=== PATIENT | female | born 1990 | race Caucasian/White ===

== ENCOUNTER 2017-05-09 01:53 | Emergency (ER) | payer OTHER ==
[~2017-05-09] VITALS: Ht 160 cm; Wt 59.8 kg
[~2017-05-09 01:53] MED LIST: BACTRIM,SEPT1 TABLET PO; CIPRO500 MG PO; DULCOLAX5 MG PO; FETZIMA40 MG PO; FLEXERIL10 MG PO; FLONASE16 G1 BOTH NARES; LEXAPRO10 MG PO; MACROBID100 MG PO; METAMUCIL PACKE1 PKT PO; MIRENA52 MG IY; MOTRIN800 MG PO; Motrin PO; NAPROSYN500 MG PO; PERCOCET 5/31 TABLET PO; Percocet 5/325,Endoc PO; ULTRAM50 MG PO; VICODIN 5-3001 EACH PO; ZOFRAN ODT8 MG PO; ZOFRAN4 MG PO
[2017-05-09 02:20] LABS: COLOR ORANGE ((YELLOW)); SPECIFIC GRAVITY 1.015 (1.000-1.030)
[2017-05-09 02:21] LABS: BLOOD LARGE; GLUCOSE (STRIP) NEGATIVE; PH, URINE 6.5 (5-8)
[2017-05-09 02:22] LABS: ADD MIUA? YES; LEUKOCYTES SMALL
[2017-05-09] MEDS ORDERED: MACROBID100 MG PO (02:48)
[2017-05-09 02:54] LABS: BACTERIA 1+ /HPF; EPITHELIAL CELLS RARE /HPF; MUCUS NONE SEEN /LPF; RED BLOOD CELLS TNTC /HPF (0-5); UCUL ADDED? YES; WHITE BLOOD CELLS TNTC /HPF (0-5); WHITE BLOOD CELLS CLUMP MOD /HPF (0-5)
[2017-05-09] MEDS ORDERED: PYRIDIUM200 MG PO (02:59)
[2017-05-09 03:02] VITALS: BP 120/70
== END 2017-05-09 03:02 | disposition home or self-care (01) ==
LOC: EXP 01:53 → EME 01:53 → EXP 03:02
DX: O23.42 Unspecified infection of urinary tract in pregnancy, second trimester (principal); Z3A.22 22 weeks gestation of pregnancy
CPT/HCPCS: 81003; 87077; 87086; 87186; 99281; 99283

== ENCOUNTER 2017-06-02 15:19 | Outpatient (CLI) | payer OTHER ==
[~2017-06-02] VITALS: Ht 162.6 cm; Wt 63.5 kg
[~2017-06-02 15:19] MED LIST changes: +PYRIDIUM200 MG PO
[2017-06-02 15:45] VITALS: BP 113/66
[2017-06-02 16:16] LABS: EOSINOPHIL (%) 0.8 % (0-5); EOSINOPHIL COUNT 0.1 K/uL (0-0.3); HEMATOCRIT 30.4 % (36.0-46.0); IMMATURE GRANULOCYTE (%) 1.8 % (0.0-0.7); IMMATURE GRANULOCYTE COUNT 0.2 K/uL; INSTRUMENT ABS NEUTROPHIL CT 8.5 K/uL; LYMPHOCYTE COUNT 1.8 K/uL (1.0-2.8); MCH 31.1 PG (29.0-34.0); MCHC 34.2 G/DL (30.0-36.0); MEAN PLAT.VOLUME 8.7 uM^3 (9.5-12.4); MONOCYTE (%) 5.3 % (3-12); MONOCYTE COUNT 0.6 K/uL (0-0.8); NEUTROPHIL (%) 75.7 % (45-76); NEUTROPHIL COUNT 8.5 K/uL (1.8-6.4); PLATELET COUNT 259 K/uL (156-360); RBC DIS.WIDTH-CV 12.9 % (11.8-14.6); RBC DIS.WIDTH-SD 41.6 % (39-53); RED BLOOD COUNT 3.34 M/uL (3.80-5.20); WHITE BLOOD COUNT 11.3 K/uL (4.1-10.2)
[2017-06-02 16:27] LABS: ANION GAP 7 MEQ/L (2-14); CHLORIDE 104 MEQ/L (99-109); POTASSIUM 3.7 MEQ/L (3.7-5.4); SAMPLE HEMOLYSIS CHECK 0; SAMPLE ICTERIC CHECK 0; SAMPLE LIPEMIA CHECK 0; SODIUM 137 MEQ/L (136-147); TOTAL BILIRUBIN 0.3 MG/DL (0.0-1.0)
[2017-06-02 16:32] LABS: ALKALINE PHOSPHATASE 51 IU/L (3-129); GFR ESTIMATE (CALCULATED) > 59 mL/min/; GLUCOSE 91 mg/dL (70-99); UREA NITROGEN (BUN) 10 mg/dL (9-23); URIC ACID 3.7 mg/dL (3.1-9.2)
[2017-06-02 17:00] LABS: ADD MIUA? YES; BILIRUBIN NEGATIVE; BLOOD MODERATE; COLOR YELLOW ((YELLOW)); GLUCOSE (STRIP) NEGATIVE; KETONES NEGATIVE; LEUKOCYTES LARGE; NITRITE NEGATIVE; PROTEIN (STRIP) NEGATIVE; SPECIFIC GRAVITY 1.012 (1.000-1.030); UROBILINOGEN 0.2 MG/DL (0.2-1.0)
[2017-06-02 17:18] VITALS: BP 115/65
[2017-06-02 17:39] LABS: BACTERIA 2+ /HPF; EPITHELIAL CELLS 4+ /HPF; MUCUS NONE SEEN /LPF; UCUL ADDED? YES; WHITE BLOOD CELLS TNTC /HPF (0-5)
[2017-06-02 19:14] VITALS: BP 105/61
[2017-06-02 22:41] VITALS: BP 109/57
[2017-06-03 03:10] VITALS: BP 113/54
[2017-06-03 08:12] VITALS: BP 110/58
[2017-06-03] MEDS ORDERED: PHENAZOPYRIDIN100 MG PO (09:13)
[2017-06-03] MEDS ORDERED: MACROBID100 MG PO (09:13)
[2017-06-03 11:09] LABS: ADD MIUA? YES; BILIRUBIN NEGATIVE; BLOOD MODERATE; COLOR AMBER ((YELLOW)); GLUCOSE (STRIP) NEGATIVE; KETONES NEGATIVE; LEUKOCYTES MODERATE; NITRITE POSITIVE; PROTEIN (STRIP) NEGATIVE; SPECIFIC GRAVITY 1.006 (1.000-1.030)
[2017-06-03 11:22] LABS: BACTERIA NONE SEEN /HPF; EPITHELIAL CELLS 1+ /HPF; MUCUS TRACE /LPF; RED BLOOD CELLS 0-5 /HPF (0-5); UCUL ADDED? YES; WHITE BLOOD CELLS 40-50 /HPF (0-5)
== END 2017-06-03 10:55 | disposition home or self-care (01) ==
LOC: LDRP-OP 15:19 → 2WEST 15:20
PROVIDERS: Obstetrics & Gynecology Gynecology
DX: O26.892 Other specified pregnancy related conditions, second trimester (principal); M54.5 Low back pain; O23.02 Infections of kidney in pregnancy, second trimester; Z87.440 Personal history of urinary (tract) infections; Z86.19 Personal history of other infectious and parasitic diseases; Z3A.25 25 weeks gestation of pregnancy
CPT/HCPCS: 59025; 80053; 81003; 84550; 85025; 87086; G0378

== ENCOUNTER 2017-06-08 11:53 | Outpatient (CLI) | payer OTHER ==
[~2017-06-08 11:53] MED LIST changes: +PHENAZOPYRIDIN100 MG PO
[2017-06-08 12:22] VITALS: BP 120/72
[2017-06-08 13:00] LABS: EOSINOPHIL (%) 0.5 % (0-5); EOSINOPHIL COUNT 0.1 K/uL (0-0.3); HEMATOCRIT 30.5 % (36.0-46.0); IMMATURE GRANULOCYTE (%) 1.6 % (0.0-0.7); IMMATURE GRANULOCYTE COUNT 0.2 K/uL; INSTRUMENT ABS NEUTROPHIL CT 9.1 K/uL; LYMPHOCYTE COUNT 1.7 K/uL (1.0-2.8); MCH 30.7 PG (29.0-34.0); MCHC 33.8 G/DL (30.0-36.0); MEAN PLAT.VOLUME 8.7 uM^3 (9.5-12.4); MONOCYTE COUNT 0.6 K/uL (0-0.8); NEUTROPHIL (%) 77.9 % (45-76); NEUTROPHIL COUNT 9.1 K/uL (1.8-6.4); PLATELET COUNT 247 K/uL (156-360); RBC DIS.WIDTH-CV 12.8 % (11.8-14.6); RBC DIS.WIDTH-SD 41.7 % (39-53); RED BLOOD COUNT 3.35 M/uL (3.80-5.20); WHITE BLOOD COUNT 11.7 K/uL (4.1-10.2)
[2017-06-08 15:08] VITALS: BP 113/62
[2017-06-08 18:57] VITALS: BP 114/68
[2017-06-08 22:52] VITALS: BP 107/65
[2017-06-09 03:29] VITALS: BP 107/56
[2017-06-09 06:52] VITALS: BP 109/65
[2017-06-09 10:57] VITALS: BP 117/63
== END 2017-06-09 15:40 | disposition home or self-care (01) ==
LOC: LDRP-OP 11:53 → 2WEST 11:54 → LDRP-OP 10-11 11:20
PROVIDERS: Nurse Practitioner
DX: O26.832 Pregnancy related renal disease, second trimester (principal); N26.1 Atrophy of kidney (terminal); Z86.19 Personal history of other infectious and parasitic diseases; Z87.440 Personal history of urinary (tract) infections; Z98.890 Other specified postprocedural states; Z88.2 Allergy status to sulfonamides; Z3A.22 22 weeks gestation of pregnancy; N32.89 Other specified disorders of bladder
CPT/HCPCS: 59025; 76770; 82731; 85025; G0378; J0696; J7050; J7120

== ENCOUNTER 2017-07-11 20:49 | Outpatient (CLI) | payer OTHER ==
[2017-07-11 21:14] VITALS: BP 120/71
[2017-07-11] MEDS ORDERED: PRENATAL TABLE1 EAC3 PO (21:21)
[2017-07-11 22:46] LABS: ADD MIUA? YES; BILIRUBIN NEGATIVE; BLOOD NEGATIVE; COLOR YELLOW ((YELLOW)); GLUCOSE (STRIP) NEGATIVE; KETONES NEGATIVE; LEUKOCYTES LARGE; NITRITE NEGATIVE; PROTEIN (STRIP) 100; UROBILINOGEN 0.2 MG/DL (0.2-1.0)
[2017-07-11 22:56] LABS: EOSINOPHIL (%) 0.8 % (0-5); EOSINOPHIL COUNT 0.1 K/uL (0-0.3); IMMATURE GRANULOCYTE (%) 3.2 % (0.0-0.7); IMMATURE GRANULOCYTE COUNT 0.4 K/uL; INSTRUMENT ABS NEUTROPHIL CT 8.5 K/uL; LYMPHOCYTE COUNT 2.3 K/uL (1.0-2.8); MCH 31.5 PG (29.0-34.0); MCHC 34.5 G/DL (30.0-36.0); MCV 91.2 FL (83-99); MEAN PLAT.VOLUME 8.6 uM^3 (9.5-12.4); MONOCYTE (%) 7.3 % (3-12); MONOCYTE COUNT 0.9 K/uL (0-0.8); NEUTROPHIL (%) 69.8 % (45-76); NEUTROPHIL COUNT 8.5 K/uL (1.8-6.4); PLATELET COUNT 264 K/uL (156-360); RBC DIS.WIDTH-CV 12.8 % (11.8-14.6); WHITE BLOOD COUNT 12.2 K/uL (4.1-10.2)
[2017-07-11 23:11] LABS: CHLORIDE 106 mEq/L (99-109); SODIUM 138 mEq/L (136-147)
[2017-07-11 23:13] LABS: GLUCOSE 85 mg/dL (70-99)
[2017-07-11 23:14] LABS: ANION GAP 12 MEQ/L (2-14)
[2017-07-11 23:15] LABS: TOTAL BILIRUBIN 0.2 mg/dL (0.0-1.0)
[2017-07-11 23:17] LABS: ALKALINE PHOSPHATASE 81 IU/L (3-129); GFR ESTIMATE (CALCULATED) > 59 mL/min/
[2017-07-11 23:18] LABS: UREA NITROGEN (BUN) 9 mg/dL (9-23)
[2017-07-11 23:45] LABS: AMPHETAMINE NEGATIVE (500 ng/mL); BARBITURATES NEGATIVE (200 ng/mL); BENZODIAZEPINES NEGATIVE (150 ng/mL); COCAINE NEGATIVE (150 ng/mL); INTERNAL CONTROLS VALID? YES; METHADONE NEGATIVE (200 ng/mL); METHAMPHETAMINE NEGATIVE (500 ng/mL); OPIATES (MORPHINE) NEGATIVE (100 ng/mL); OXYCODONE NEGATIVE (100 ng/mL); PHENCYCLIDINE NEGATIVE (25 ng/mL); PROPOXYPHENE NEGATIVE (300 ng/mL); THC CANNABINOIDS NEGATIVE (50 ng/mL); TRICYCLIC ANTIDEPRESSANTS NEGATIVE (300 ng/mL)
[2017-07-12 00:10] VITALS: BP 99/59
[2017-07-12 02:24] VITALS: BP 108/55
[2017-07-12 02:56] LABS: BACTERIA NONE SEEN /HPF; EPITHELIAL CELLS RARE /HPF; MUCUS NONE SEEN /LPF; RED BLOOD CELLS NONE SEEN /HPF (0-5); UCUL ADDED? YES; WHITE BLOOD CELLS 30-40 /HPF (0-5)
[2017-07-12 05:56] VITALS: BP 107/67
[2017-07-12 06:24] LABS: CANDIDA DNA PROBE NEGATIVE; GARDNERELLA DNA PROBE POSITIVE; INTERNAL CONTROL VALID? YES
[2017-07-12 07:18] VITALS: BP 96/52
[2017-07-12] MEDS ORDERED: NIFEDIPINE20 MG PO (08:58)
[2017-07-12 13:21] LABS: CHLAMYDIA TRACHOMATIS NEGATIVE; NEISSERIA GONORRHOEAE NEGATIVE
== END 2017-07-12 09:35 | disposition home or self-care (01) ==
LOC: LDRP-OP 20:49 → 2WEST 20:51 → LDRP-OP 10-11 21:03
PROVIDERS: Midwife; Obstetrics & Gynecology
DX: O60.03 Preterm labor without delivery, third trimester (principal); Z87.440 Personal history of urinary (tract) infections; Z3A.31 31 weeks gestation of pregnancy
CPT/HCPCS: 59025; 80053; 81003; 82731; 85025; 87077; 87086; 87186; 87480; 87491; 87510; 87591; 87660; G0378; J0702; J2405; J7120

== ENCOUNTER 2017-07-12 21:25 | Outpatient (CLI) | payer OTHER ==
[~2017-07-12 21:25] MED LIST changes: +NIFEDIPINE20 MG PO; +PRENATAL TABLE1 EAC3 PO
[2017-07-12 21:51] VITALS: BP 112/67
== END 2017-07-12 23:10 | disposition home or self-care (01) ==
LOC: LDRP-OP 21:25 → 2WEST 21:27 → LDRP-OP 10-09 11:19
DX: O60.03 Preterm labor without delivery, third trimester (principal); Z3A.31 31 weeks gestation of pregnancy
CPT/HCPCS: 59025; G0378

== ENCOUNTER 2017-08-13 06:06 | Inpatient (IN) | payer OTHER ==
[2017-08-13] VITALS (13 sets, daily range): BP systolic 106–133; BP diastolic 70–88
[2017-08-13 07:57] LABS: BASOPHIL COUNT 0.1 K/uL (0-0.1); EOSINOPHIL (%) 0.5 % (0-5); EOSINOPHIL COUNT 0.1 K/uL (0-0.3); HEMATOCRIT 30.4 % (36.0-46.0); IMMATURE GRANULOCYTE COUNT 0.4 K/uL; INSTRUMENT ABS NEUTROPHIL CT 11.3 K/uL; LYMPHOCYTE COUNT 1.7 K/uL (1.0-2.8); MCH 30.5 PG (29.0-34.0); MCHC 33.6 G/DL (30.0-36.0); MEAN PLAT.VOLUME 8.6 uM^3 (9.5-12.4); MONOCYTE (%) 6.9 % (3-12); NEUTROPHIL (%) 77.4 % (45-76); NEUTROPHIL COUNT 11.3 K/uL (1.8-6.4); PLATELET COUNT 216 K/uL (156-360); RBC DIS.WIDTH-CV 12.9 % (11.8-14.6); RBC DIS.WIDTH-SD 42.4 % (39-53); RED BLOOD COUNT 3.34 M/uL (3.80-5.20); WHITE BLOOD COUNT 14.6 K/uL (4.1-10.2)
[2017-08-13 08:30] LABS: ADD MIUA? YES; BILIRUBIN NEGATIVE; BLOOD SMALL; COLOR YELLOW ((YELLOW)); GLUCOSE (STRIP) NEGATIVE; KETONES NEGATIVE; LEUKOCYTES LARGE; NITRITE NEGATIVE; PROTEIN (STRIP) NEGATIVE; SPECIFIC GRAVITY 1.006 (1.000-1.030); UROBILINOGEN 0.2 MG/DL (0.2-1.0)
[2017-08-13 08:35] LABS: BACTERIA 2+ /HPF; EPITHELIAL CELLS RARE /HPF; MUCUS TRACE /LPF; RED BLOOD CELLS 0-5 /HPF (0-5); UCUL ADDED? YES
[2017-08-13] MEDS ORDERED: IBUPROFEN800 MG PO (14:12)
[2017-08-14 07:27] VITALS: BP 116/64
[2017-08-14 07:48] LABS: EOSINOPHIL COUNT 0.1 K/uL (0-0.3); HEMATOCRIT 24.1 % (36.0-46.0); IMMATURE GRANULOCYTE (%) 1.9 % (0.0-0.7); IMMATURE GRANULOCYTE COUNT 0.2 K/uL; INSTRUMENT ABS NEUTROPHIL CT 8.2 K/uL; LYMPHOCYTE COUNT 2.1 K/uL (1.0-2.8); MCH 30.7 PG (29.0-34.0); MCV 90.3 FL (83-99); MEAN PLAT.VOLUME 8.5 uM^3 (9.5-12.4); MONOCYTE (%) 7.4 % (3-12); MONOCYTE COUNT 0.9 K/uL (0-0.8); NEUTROPHIL (%) 71.6 % (45-76); NEUTROPHIL COUNT 8.2 K/uL (1.8-6.4); PLATELET COUNT 195 K/uL (156-360); RBC DIS.WIDTH-CV 12.9 % (11.8-14.6); RBC DIS.WIDTH-SD 42.4 % (39-53); RED BLOOD COUNT 2.67 M/uL (3.80-5.20); WHITE BLOOD COUNT 11.4 K/uL (4.1-10.2)
[2017-08-14 11:18] VITALS: BP 111/61
[2017-08-14 11:19] VITALS: BP 109/62
[2017-08-14 15:45] VITALS: BP 110/64
[2017-08-15 07:33] VITALS: BP 106/54
[2017-08-15] MEDS ORDERED: SLOW RELEASE I160 MG PO (09:46)
== END 2017-08-15 11:30 | disposition home or self-care (01) | DRG 775 ==
LOC: LDRP-OP 06:06 → 2WEST 06:07 → LDRP-OP 10-09 03:28
PROVIDERS: Midwife
DX: O60.14X0 Preterm labor third trimester with preterm delivery third trimester, not applicable or unspecified (principal); D62 Acute posthemorrhagic anemia; O99.02 Anemia complicating childbirth; O99.824 Streptococcus B carrier state complicating childbirth; D50.9 Iron deficiency anemia, unspecified; Z37.0 Single live birth; Z3A.36 36 weeks gestation of pregnancy; O75.89 Other specified complications of labor and delivery
CPT/HCPCS: 81003; 85025; 87077; 87086; 87186; J0595; J2540; J7120

== ENCOUNTER → 2017-10-12 | Outpatient (CLI) | payer OTHER ==
[~2017-10-12] MED LIST changes: +IBUPROFEN800 MG PO; +SLOW RELEASE I160 MG PO
== END | disposition home or self-care (01) ==
LOC: NUC 11:00
DX: N28.9 Disorder of kidney and ureter, unspecified (principal)
CPT/HCPCS: 78709; A9562